=== PATIENT | male | born 1965 | race American Indian/Alaskan Native ===

== ENCOUNTER 2021-07-14 19:43 | Emergency (ER) | payer OTHER ==
[2021-07-14] MEDS ORDERED: LIDOCAINE-MPF (1%) 10 MG/1 ML VIAL 5 ML INFILTRATI ONE (21:05)
[2021-07-14] MEDS ORDERED: TETANUS,DIPH,PERTUSS(ACELL) VACCINE 0.5 ML SYRINGE IM ONE (21:05)
[2021-07-14] MEDS ORDERED: IBUPROFEN 600 MG TAB PO ONE (21:05)
--- NOTE | 2021-07-14 21:44 | Emergency Department Report ---
- General Chief Complaint: Laceration/Recheck/Suture Stated Complaint: LEFT FINGER LAC Source: patient Mode of arrival: Ambulatory Limitations: No Limitations - Related Data Previous Rx's Medication Instructions Recorded Last Taken Type Ibuprofen [Motrin] 600 mg PO Q8H PRN #30 tablet 07/14/21 Unknown Rx Sulfamethoxazole/Trimethoprim 1 each PO Q12H #20 tablet 07/14/21 Unknown Rx [Bactrim DS TAB] Allergies Allergy/AdvReac Type Severity Reaction Status Date / Time No Known Allergies Allergy Unverified 07/14/21 19:51 ED Review of Systems ROS: Stated complaint: LEFT FINGER LAC Other details as noted in HPI ED Past Medical Hx - Past Medical History Previous Medical History?: No - Surgical History Past Surgical History?: No - Medications Home Medications: Home Medications Medication Instructions Recorded Confirmed Last Taken Type Ibuprofen [Motrin] 600 mg PO Q8H PRN #30 tablet 07/14/21 Unknown Rx Sulfamethoxazole/Trimethoprim 1 each PO Q12H #20 tablet 07/14/21 Unknown Rx [Bactrim DS TAB] ED Physical Exam - General Limitations: No Limitations ED Course Vital Signs 07/14/21 19:45 Temperature 97.7 F Pulse Rate 83 Respiratory 18 Rate Blood Pressure 147/80 O2 Sat by Pulse 99 Oximetry Critical care attestation.: If time is entered above; I have spent that time in minutes in the direct care of this critically ill patient, excluding procedure time. ED Disposition Clinical Impression: Laceration of left index finger w/o foreign body w/o damage to nail Qualifiers: Encounter type: initial encounter Qualified Code(s): S61.211A - Laceration without foreign body of left index finger without damage to nail, initial encounter Injury of left index finger Qualifiers: Encounter type: initial encounter Qualified Code(s): S69.92XA - Unspecified injury of left wrist, hand and finger(s), initial encounter Disposition: 01 HOME / SELF CARE / HOMELESS Is pt being admited?: No Does the pt Need Aspirin: No Condition: Stable Instructions: Laceration Care, Adult, [id number], Sutured Wound Care, [id number], Sutures, Dash, or Adhesive Wound Closure, [id number] Additional Instructions: Take medication with food, drink plenty of fluids and follow-up with your primary care physician in 7 to 10 days for reevaluation. Return to the ED immediately if symptoms get worse. Otherwise return to the ED or to your primary care physician in 12 to 14 days for suture removal. Prescriptions: Sulfamethoxazole/Trimethoprim [Bactrim DS TAB] 1 each PO Q12H #20 tablet Ibuprofen [Motrin] 600 mg PO Q8H PRN #30 tablet PRN Reason: Pain Referrals: [facility] [Provider Group] - 7-10 days Time of Disposition: 21:45 Print Language: HEBREW
[2021-07-14 23:50] VITALS: BP 167/94
== END 2021-07-14 23:54 | disposition home or self-care (01) ==
LOC: ED 19:43
DX: S61.211A Laceration without foreign body of left index finger without damage to nail, initial encounter (principal); W22.8XXA Striking against or struck by other objects, initial encounter; Y93.89 Activity, other specified; Y92.89 Other specified places as the place of occurrence of the external cause; Y99.0 Civilian activity done for income or pay
CPT/HCPCS: 90471; 90715; 99282

== ENCOUNTER 2021-07-27 14:54 | Emergency (ER) | payer OTHER ==
[2021-07-27 16:29] VITALS: BP 121/86
--- NOTE | 2021-07-27 22:37 | Emergency Department Report ---
HPI - General Chief Complaint: Laceration/Recheck/Suture Time Seen by Provider: 07/27/21 22:02 - HPI HPI: 56-year-old male presents to the emergency department for suture removal from the left index finger. The patient was seen here for a finger laceration and subsequent repair on 07/14. He denies any complications including any increased pain or bleeding since the procedure. ED Past Medical Hx - Past Medical History Previous Medical History?: No - Surgical History Past Surgical History?: No - Social History Smoking Status: Never Smoker - Medications Home Medications: Home Medications Medication Instructions Recorded Confirmed Last Taken Type Ibuprofen [Motrin] 600 mg PO Q8H PRN #30 tablet 07/14/21 Unknown Rx Sulfamethoxazole/Trimethoprim 1 each PO Q12H #20 tablet 07/14/21 Unknown Rx [Bactrim DS TAB] ED Review of Systems ROS: Stated complaint: STITCHES REMOVAL Other details as noted in HPI Comment: All other systems reviewed and negative Constitutional: denies: chills, fever Musculoskeletal: denies: joint swelling, arthralgia Skin: other (Healed finger laceration). denies: rash Physical Exam - Physical Exam Vital Signs: Vital Signs 07/27/21 16:27 Temperature 99.2 F Pulse Rate 87 Respiratory 17 Rate Blood Pressure 121/86 O2 Sat by Pulse 98 Oximetry Physical Exam: GENERAL: The patient is well-developed well-nourished. HENT: Normocephalic. Atraumatic. Patient has moist mucous membranes. EYES: Extraocular motions are intact. NECK: Supple. Trachea is midline. SKIN: Skin is warm and dry. 11 simple interrupted sutures are seen over a healing/healed laceration to the distal left index finger. The majority is to the finger pad and there are a few sutures in place to the radial side of the finger, next to the nail. NEURO: The patient is awake, alert, and oriented. The patient is cooperative. MUSCULOSKELETAL: There is no tenderness or deformity. There is no limitation range of motion. Capillary refill less than 2 seconds and radial pulse +2/4 to the affected left upper extremity. ED Course Vital Signs 07/27/21 16:27 Temperature 99.2 F Pulse Rate 87 Respiratory 17 Rate Blood Pressure 121/86 O2 Sat by Pulse 98 Oximetry - Procedure Description Procedures done: 11 simple interrupted sutures were removed from the distal left index finger. The patient tolerated the procedure well and no obvious complications. ED Medical Decision Making - Medical Decision Making 11 sutures were removed. No dehiscence of the wound. No signs of current infection. We discussed continued wound care. Critical Care Time: No Critical care attestation.: If time is entered above; I have spent that time in minutes in the direct care of this critically ill patient, excluding procedure time. ED Disposition Clinical Impression: Visit for suture removal Disposition: HOME / SELF CARE / HOMELESS Is pt being admited?: No Condition: Stable Instructions: Wound Closure Removal, Care After Additional Instructions: Clean the area with soap and water and then make sure it remains dry. Please monitor for any signs/symptoms of infection such as increased pain, increased swelling, surrounding redness, development of fever or discharge of pus. Return to the emergency department with any worsening of your symptoms, new or concerning symptoms not addressed during this current emergency department visit, or with any acute distress. Referrals: PRIMARY CARE, [Primary Care Provider] - 3-5 Days Time of Disposition: 22:37
== END 2021-07-27 22:51 | disposition home or self-care (01) ==
LOC: ED 14:54
DX: Z48.02 Encounter for removal of sutures (principal)